=== PATIENT | female | born 1975 | race Caucasian/White ===

== ENCOUNTER 2023-06-30 19:21 | Emergency (ER) | payer OTHER ==
--- NOTE | 2023-06-30 21:06 | RAD REPORT ---
EXAM DESCRIPTION: RAD - Chest Single View - 06/30/2023 8:51 pm CLINICAL HISTORY: epigastric pain COMPARISON: No comparisons FINDINGS: Lines: None. Lungs: No evidence of edema or pneumonia. Pleural: No significant pleural effusions or pneumothorax. Cardiac: The heart size is within normal limits. Mediastinum: Within normal limits. Bones: No acute fractures. Other: None IMPRESSION: No acute cardiopulmonary disease.
[2023-06-30 21:50] LABS: Absolute Lymphocytes (CBC) 1.7 K/uL (0.7-4.9); Hematocrit 36.3 % (36.0-45.0); Lymphocytes % 13.8 % (15.3-44.8); MCV 98.6 fL (80-100); MPV 7.9 fL (7.6-11.3); Platelets 222 thou/uL (152-406); RBC Red Blood Cell Count 3.68 M/uL (3.86-4.86)
[2023-06-30 21:57] LABS: Protime INR 0.89
[2023-06-30 22:10] LABS: ALT/SGPT 42 U/L (13-56); AST/SGOT 24 U/L (15-37); Albumin 3.5 g/dL (3.4-5.0); Alkaline Phosphatase 59 U/L (45-117); BUN Blood Urea Nitrogen 7 mg/dL (7-18); Bicarbonate 24 mEq/L (21-32); Bilirubin Total 0.2 mg/dL (0.2-1.0); Glomerular Filtration Rate 112 ml/min (=/>90); Glucose Level 104 mg/dL (74-106); Lipase 50 U/L (13-75); NT PRO-BNP 49 pg/mL (<125); Potassium 3.6 mEq/L (3.5-5.1); Protein, Total 6.8 g/dL (6.4-8.2); Sodium Level 141 mEq/L (136-145); Troponin High Sensitivity 4.3 pg/mL (<58.9)
[2023-06-30 22:11] LABS: Bilirubin Direct < 0.1 mg/dL (0-0.2); Bilirubin Indirect, Calculated ND mg/dL (0.2-0.8)
--- NOTE | 2023-07-01 01:24 | EDPHYS ---
Physician Documentation [facility] Name: Mery Naik Age: 48 yrs Sex: Female : 1975 Arrival Date: 06/30/2023 Time: 19:21 Bed 17 Private MD: ED Physician Leland David HPI: 06/30 20:25 This 48 yrs old Female presents to ER via Ambulatory with complaints of Bloody Stools, cp Fatigue. 20:25 Onset: The symptoms/episode began/occurred this morning. Associated signs and symptoms: cp Pertinent positives: diarrhea, epigastric abdomen pain, Pertinent negatives: chest pain, constipation, fever, shortness of breath. Severity of symptoms: in the emergency department the symptoms are unchanged despite home interventions. 20:25 The patient presents to the emergency department with rectal bleeding, a moderate cp amount, dark red blood with bowel movement in toilet bowl, with multiple such episodes. Historical: - Allergies: 07/01 02:24 meloxicam; rv - Home Meds: 06/30 20:47 aspirin 81 mg Oral capsule [Active]; clopidogrel 75 mg oral tablet [Active]; vc1 - PSHx: 20:47 None; vc1 - Immunization history:: Client reports receiving the 2nd dose of the Covid vaccine. - Social history:: Smoking status: Patient denies any tobacco usage or history of. ROS: 20:30 Constitutional: Positive for fatigue, Negative for body aches, chills, fever, poor PO cp intake, 20:30 Eyes: Negative for injury, pain, redness, and discharge, cp 20:30 ENT: Negative for drainage from ear(s), ear pain, sore throat, difficulty swallowing, difficulty handling secretions, 20:30 Cardiovascular: Negative for chest pain, 20:30 Respiratory: Negative for cough, shortness of breath, wheezing, 20:30 Abdomen/GI: Positive for abdominal pain, diarrhea, rectal bleeding, Negative for vomiting, constipation, 20:30 Back: Negative for pain at rest, pain with movement, 20:30 : Negative for urinary symptoms, 20:30 Neuro: Negative for altered mental status, dizziness, headache, syncope, near syncope, 20:30 All other systems are negative, Exam: 20:33 Constitutional: The patient appears in no acute distress, alert, awake, non-toxic, well cp developed, well nourished, 20:33 Head/Face: Normocephalic, atraumatic. cp 20:33 Eyes: Periorbital structures: appear normal, Conjunctiva: normal, no exudate, no injection, Sclera: no appreciated abnormality, Lids and lashes: appear normal, bilaterally, 20:33 ENT: External ear(s): are unremarkable, Nose: is normal, Mouth: Lips: moist, Oral mucosa: pink and intact, moist, Posterior pharynx: is normal, airway is patent, no erythema, no exudate, 20:33 Chest/axilla: Inspection: normal, 20:33 Cardiovascular: Rate: tachycardic, Rhythm: regular, Edema: is not appreciated, JVD: is not appreciated, 20:33 Respiratory: the patient does not display signs of respiratory distress, Respirations: normal, no use of accessory muscles, no retractions, labored breathing, is not present, Breath sounds: are clear throughout, no decreased breath sounds, no stridor, no wheezing, 20:33 Abdomen/GI: Inspection: abdomen appears normal, Bowel sounds: active, all quadrants, Palpation: soft, in all quadrants, mild abdominal tenderness, in the epigastric area, rebound tenderness, is not appreciated, involuntary guarding, is not appreciated, 20:33 Back: pain, is absent, ROM is normal, 20:33 Neuro: Orientation: to person, place \T\ time. Mentation: is normal, Motor: moves all fours, strength is normal, Gait: is steady, Vital Signs: 20:44 BP 149 / 99; Pulse 105; Resp 20; Temp 98.3; Pulse Ox 99% ; Weight 48.99 kg; Height 5 vc1 ft. 8 in. ; 22:18 BP 129 / 77; Pulse 90; Resp 18; Pulse Ox 99% on R/A; rv 11/05 01:22 BP 136 / 79; Pulse 85; Resp 16; Pulse Ox 100% on R/A; rv 04:07 BP 121 / 76; Pulse 80; Resp 18; Temp 98; Pulse Ox 99% ; rv 04 20:44 Body Mass Index 16.42 (48.99 kg, 172.72 cm) vc1 [place] Coma Score: 06/30 22:18 Eye Response: spontaneous(4). Motor Response: obeys commands(6). Verbal Response: rv oriented(5). Total: 15. 07/01 01:22 Eye Response: spontaneous(4). Motor Response: obeys commands(6). Verbal Response: rv oriented(5). Total: 15. 04:07 Eye Response: spontaneous(4). Motor Response: obeys commands(6). Verbal Response: rv oriented(5). Total: 15. MDM: 06/30 20:15 Patient medically screened. 07/01 01:30 Data reviewed: vital signs, nurses notes, lab test result(s), radiologic studies, CT cp scan. 01:30 Differential diagnosis: colitis, diverticulitis, sepsis, anemia. I considered the cp following discharge prescriptions or medication management in the emergency department Medications were administered in the Emergency Department. See MAR. Counseling: I had a detailed discussion with the patient and/or guardian regarding the historical points, exam findings, and any diagnostic results supporting the discharge/admit diagnosis, lab results, radiology results, the need to transfer to another facility, [facility] does not immediately have the required specialist. 06/30 20:21 Order name: Basic Metabolic Panel; Complete Time: 22:28 cp 06/30 22:28 Interpretation: Normal except: CL 109. cp 06/30 20:21 Order name: CBC with Diff; Complete Time: 22:28 cp 06/30 22:28 Interpretation: Normal except: WBC 12.40; RBC 3.68; BARBI% 79.7; LYM% 13.8; NEUT A 9.9. cp 06/30 20:21 Order name: LFT's; Complete Time: 22:28 cp 06/30 20:21 Order name: Magnesium; Complete Time: 22:28 cp 06/30 20:21 Order name: NT PRO-BNP; Complete Time: 22:28 cp 06/30 20:21 Order name: PT-INR; Complete Time: 22:28 cp 06/30 20:21 Order name: Troponin HS; Complete Time: 22:28 cp 06/30 20:21 Order name: Ptt, Activated; Complete Time: 22:28 cp 06/30 20:21 Order name: Lipase; Complete Time: 22:28 cp 06/30 22:43 Order name: Ova And Parasites cp 06/30 22:43 Order name: Rotavirus Antigen cp 06/30 22:43 Order name: Stool Culture cp 06/30 22:43 Order name: CDIFF cp 07/01 01:22 Order name: Lactate w/ 2H reflex if indic.; Complete Time: 02:14 cp 07/01 01:22 Order name: Blood Culture Adult (2) cp 07/01 01:22 Order name: Type And Screen cp 06/30 20:21 Order name: XRAY Chest (1 view); Complete Time: 22:28 cp 06/30 21:20 Order name: CT Abd/Pelvis - PO and IV Contrast cp 06/30 20:21 Order name: EKG; Complete Time: 20:22 cp 06/30 20:21 Order name: Cardiac monitoring; Complete Time: 21:42 cp 06/30 20:21 Order name: EKG - Nurse/Tech; Complete Time: 21:42 cp 06/30 20:21 Order name: IV Saline Lock; Complete Time: 21:42 cp 06/30 20:21 Order name: Labs collected and sent; Complete Time: 21:42 cp 06/30 20:21 Order name: O2 Per Protocol; Complete Time: 21:42 cp 06/30 20:21 Order name: O2 Sat Monitoring; Complete Time: 21:42 cp Administered Medications: 02:26 Drug: metroNIDAZOLE IVPB 500 mg 100 ml IVPB once over 30 mins Volume: 100 ml; Route: rv IVPB; Infused Over: 30 mins; Site: right antecubital; 04:06 Follow up: Response: No adverse reaction; IV Status: Completed infusion; IV Intake: rv 100ml 02:44 Drug: NS 0.9% IV 1000 ml IV at 1 bolus Per protocol; 1000 mL bolus Route: IV; Rate: 1 rv bolus; Site: left antecubital; 04:06 Follow up: IV Status: Completed infusion; IV Intake: 1000ml rv 02:44 Drug: Pantoprazole IVP 40 mg IVP once Route: IVP; Site: left antecubital; rv 04:06 Follow up: Response: No adverse reaction rv 02:44 Drug: Pantoprazole IV 8 mg/hr IV at 25 ml/hr continuous; (Standard dilution is 80 mg in rv 250 mL NS) Route: IV; Rate: 25 ml/hr; Site: left antecubital; 04:06 Follow up: IV Status: Infusion continued upon transfer rv 03:06 Drug: Ciprofloxacin IVPB 400 mg 200 ml IVPB once over 60 mins Volume: 200 ml; Route: rv IVPB; Infused Over: 60 mins; Site: right antecubital; 04:06 Follow up: IV Status: Infusion continued upon transfer rv Disposition: 07/02 01:08 Co-signature as Attending Physician, Leland David MD I agree with the assessment sp4 and plan of care. I reviewed the patient's care provided by the Advanced Practice Provider and agree with the diagnosis and treatment plan. Disposition Summary: 07/01/23 01:23 Transfer Ordered Notes: Transfer Location: [facility] cp Reason: Higher level of care cp Condition: Stable cp Problem: new cp Symptoms: have improved cp Accepting Physician: DR Hodge(07/01/23 04:08) rv Diagnosis - GI Bleed/ Gastrointestinal hemorrhage, unspecified cp Forms: - Medication Reconciliation Form cp - SBAR form cp Signatures: Dispatcher [employer] EDMS Al Lin PA PA cp Vicente, Ronaldo RN Latoya Mascorro RN RN vc1 Potepalov, Sergey, MD MD sp4 Corrections: (The following items were deleted from the chart) 06/30 20:48 20:47 Home Meds: None; vc1 vc1 07/01 02:24 06/30 20:47 Allergies: No Known Allergies; vc1 rv 07/01 03:00 01:23 Doctor ava cp 03:10 03:00 DR Hodge cp rv 04:08 03:10 DR Hodge rv rv
--- NOTE | 2023-07-01 01:24 | ER ---
Nurse's Notes [facility] Name: Mery Naik Age: 48 yrs Sex: Female : 1975 Arrival Date: 06/30/2023 Time: 19:21 Bed 17 Private MD: Diagnosis: GI Bleed/ Gastrointestinal hemorrhage, unspecified Presentation: 06/30 20:44 Chief complaint: Patient states: I'm supposed to have a colonoscopy with Dr. Alarcon and vc1 he told me to come to the ER if I start bleeding. This am I had dark stools and some blood when I wipe but at 7 I had a lot of blood. Coronavirus screen: Vaccine status: Patient reports receiving the 2nd dose of the covid vaccine. [employer]. Ebola Screen: Patient negative for fever greater than or equal to 101.5 degrees Fahrenheit, and additional compatible Ebola Virus Disease symptoms Patient denies exposure to infectious person. Patient denies travel to an Ebola-affected area in the 21 days before illness onset. No symptoms or risks identified at this time. Initial Sepsis Screen: Does the patient meet any 2 criteria? No. Patient's initial sepsis screen is negative. Does the patient have a suspected source of infection? No. Patient's initial sepsis screen is negative. Risk Assessment: Do you want to hurt yourself or someone else? Patient reports no desire to harm self or others. Onset of symptoms was June 30, 2023. 20:44 Method Of Arrival: Ambulatory vc1 20:44 Acuity: GAVINO 3 vc1 Historical: - Allergies: 07/01 02:24 meloxicam; rv - Home Meds: 06/30 20:47 aspirin 81 mg Oral capsule [Active]; clopidogrel 75 mg oral tablet [Active]; vc1 - PSHx: 20:47 None; vc1 - Immunization history:: Client reports receiving the 2nd dose of the Covid vaccine. - Social history:: Smoking status: Patient denies any tobacco usage or history of. Screenin:42 [facility] ED Fall Risk Assessment (Adult) History of falling in the last 3 months, rv including since admission No falls in past 3 months (0 pts) Score/Fall Risk Level 0 - 2 = Low Risk Oriented to surroundings, Maintained a safe environment, Educated pt \T\ family on fall prevention, incl call for assistance when getting out of bed, Assessed \T\ reinforced patient's understanding of fall precautions, Provided non-skid footwear, Hourly rounding (assess needs \T\ fall precautionary measures) done, Used ambulatory aids as needed (educated on \T\ assisted with), Used gait belt as appropriate. Abuse screen: Denies threats or abuse. Denies injuries from another. Nutritional screening: No deficits noted. Tuberculosis screening: No symptoms or risk factors identified. Assessment: 22:18 General: Appears comfortable, Behavior is calm, cooperative. Pain: Denies pain. Neuro: rv Level of Consciousness is awake, alert, obeys commands, Oriented to person, place, time, situation. Cardiovascular: Capillary refill < 3 seconds. Respiratory: Airway is patent Respiratory effort is even, unlabored. GI: Abdomen is flat, non-distended. Vital Signs: 20:44 BP 149 / 99; Pulse 105; Resp 20; Temp 98.3; Pulse Ox 99% ; Weight 48.99 kg; Height 5 vc1 ft. 8 in. ; 22:18 BP 129 / 77; Pulse 90; Resp 18; Pulse Ox 99% on R/A; rv 07/01 01:22 BP 136 / 79; Pulse 85; Resp 16; Pulse Ox 100% on R/A; rv 04:07 BP 121 / 76; Pulse 80; Resp 18; Temp 98; Pulse Ox 99% ; rv 06/30 20:44 Body Mass Index 16.42 (48.99 kg, 172.72 cm) vc1 [place] Coma Score: 06/30 22:18 Eye Response: spontaneous(4). Motor Response: obeys commands(6). Verbal Response: rv oriented(5). Total: 15. 07/01 01:22 Eye Response: spontaneous(4). Motor Response: obeys commands(6). Verbal Response: rv oriented(5). Total: 15. 04:07 Eye Response: spontaneous(4). Motor Response: obeys commands(6). Verbal Response: rv oriented(5). Total: 15. ED Course: 06/30 19:23 Patient arrived in ED. mr 19:47 Al Lin PA is PHCP. cp 19:47 Leland David MD is Attending Physician. cp 20:47 Triage completed. vc1 20:48 Arm band placed on right wrist. vc1 20:53 XRAY Chest (1 view) In Process Unspecified. EDMS 21:42 Patient has correct armband on for positive identification. Client placed on continuous rv cardiac and pulse oximetry monitoring. NIBP monitoring applied. monitor car operator on. 21:42 No provider procedures requiring assistance completed. Inserted saline lock: 20 gauge rv in right forearm, using aseptic technique. Blood collected. 22:17 Aiden De La Torre, RN is Primary Nurse. rv 07/01 00:49 CT Abd/Pelvis - PO and IV Contrast In Process Unspecified. EDMS 01:35 Initiated transfer with [facility] at [facility]. rv1 03:10 Primary Nurse role handed off by Aiden De La Torre RN rv1 03:10 Patient admitted, IV remains in place. rv Administered Medications: 02:26 Drug: metroNIDAZOLE IVPB 500 mg 100 ml IVPB once over 30 mins Volume: 100 ml; Route: rv IVPB; Infused Over: 30 mins; Site: right antecubital; 04:06 Follow up: Response: No adverse reaction; IV Status: Completed infusion; IV Intake: rv 100ml 02:44 Drug: NS 0.9% IV 1000 ml IV at 1 bolus Per protocol; 1000 mL bolus Route: IV; Rate: 1 rv bolus; Site: left antecubital; 04:06 Follow up: IV Status: Completed infusion; IV Intake: 1000ml rv 02:44 Drug: Pantoprazole IVP 40 mg IVP once Route: IVP; Site: left antecubital; rv 04:06 Follow up: Response: No adverse reaction rv 02:44 Drug: Pantoprazole IV 8 mg/hr IV at 25 ml/hr continuous; (Standard dilution is 80 mg in rv 250 mL NS) Route: IV; Rate: 25 ml/hr; Site: left antecubital; 04:06 Follow up: IV Status: Infusion continued upon transfer rv 03:06 Drug: Ciprofloxacin IVPB 400 mg 200 ml IVPB once over 60 mins Volume: 200 ml; Route: rv IVPB; Infused Over: 60 mins; Site: right antecubital; 04:06 Follow up: IV Status: Infusion continued upon transfer rv Medication: 06/30 21:42 VIS not applicable for this client. rv Intake: 07/01 04:06 IV: 100ml; Total: 100ml. rv 04:06 IV: 1000ml; Total: 1100ml. rv Outcome: 01:23 ER care complete, transfer ordered by . cp 03:09 Admitted to Med/surg accompanied by nurse, via wheelchair, room 206, with chart, Report rv called to james lopez 03:09 Condition: good 03:09 Instructed on the need for admit, 03:10 Patient left the ED. rv 04:08 Patient left the ED. rv Signatures: Dispatcher [employer] EDDC Angela Andre, Reg Reg mr Al Lin, MARJORIE PA Aiden Hu, RN RN rv Latoya Johnson RN RN vc1 Kourtney Malik rv1 Corrections: (The following items were deleted from the chart) 06/30 20:48 20:47 Home Meds: None; vc1 vc1 07/01 02:24 06/30 20:47 Allergies: No Known Allergies; vc1 rv
[2023-07-01] MEDS ORDERED: CIPROFLOXACIN 400mg IV 400 MG/200 ML BAG IV ONE (02:34)
[2023-07-01] MEDS ORDERED: METRONIDAZOLE 500mg IVPB 500 MG/100 ML BAG IV ONE (02:34)
[2023-07-01] MEDS ORDERED: PANTOPRAZOLE 40 MG INJ ONE (02:43)
[2023-07-01] MEDS ORDERED: NA CHLORIDE 0.9% 100 ML ONE (02:43)
[2023-07-01] MEDS ORDERED: NA CHLORIDE 0.9% 250 ML ONE (02:45)
[2023-07-01 05:13] VITALS: BP 121/76; TEMP 98; O2SAT 99
--- NOTE | 2023-07-01 14:22 | RAD REPORT ---
EXAM DESCRIPTION: CT - Abdomen Pelvis W Contrast - 07/01/2023 6:47 am CLINICAL HISTORY: Rectal bleeding; Abd pain TECHNIQUE: Axial computed tomography images of the abdomen and pelvis with intravenous contrast. S agittal and coronal reformatted images were created and reviewed. This CT exam was performed using one or more of the following dose reduction techniques: automated exposure control, adjustment of t he mA and/or kV according to patient size, and/or use of iterative reconstruction technique. COMPARISON: No relevant prior studies available. FINDINGS: Lung bases: Unremarkable. No mass. No consolidation. ABDOMEN: Liver: The liver is enlarged and mildly diffusely low in density compatible with steatosis. Gallbladder and bile ducts: Unremarkable. No calcified stones. No ductal dilation. Pancreas: Unremarkable. Spleen: Unremarkable. No splenomegaly. Adrenals: Unremarkable. No mass. Kidneys and ureters: Small bilateral renal calculi. No hydronephrosis. Stomach and bowel: Multiloculated complex cystic structure located between the stomach and the panc reas measuring approximately 5.9 x 4 x 4.8 cm. There is a thin intervening fat plane between these structures in both organs. Moderate stool in the distal large bowel. No obstruction. No appreci able mucosal thickening. PELVIS: Appendix: Normal caliber appendix. No findings to suggest acute appendicitis. Bladder: The urinary bladder is partially decompressed. Mild circumferential urinary bladder wall thickening. Reproductive: Unremarkable as visualized. ABDOMEN and PELVIS: Intraperitoneal space: Unremarkable. No free air. No significant fluid collection. Bones/joints: Multilevel spondylosis most pronounced at L5-S1. Moderate degenerative changes at t he hip joints bilaterally. No acute fracture. No dislocation. Soft tissues: Partially visualized bilateral breast implants. Vasculature: Mild atherosclerotic disease. No abdominal aortic aneurysm. Lymph nodes: Unremarkable. No enlarged lymph nodes. IMPRESSION: 1. Moderate stool within the distal large bowel. No appreciable mucosal thickening. 2. Mild circumferential urinary bladder wall thickening which may be related to degree of distentio n. Please correlate clinically for cystitis. 3. There is an indeterminate complex multiloculated cystic lesion located between the stomach and t he pancreas measuring approximately 5.9 x 4 x 4.8 cm. There is a thin intervening fat plane between this structure and both organs suggesting that it is not of gastric or pancreatic origin. No surro unding inflammation to suggest an infected collection/abscess. Differential considerations include but are not limited to chylolymphatic cyst, cystic lymphangioma, mucinous cystic neoplasm of the mese ntery and multicystic peritoneal mesothelioma. If prior studies exist, direct comparison would be o f considerable value. Nonemergent surgical consult is recommended. 4. Other findings as above. Electronically signed by: Beto Mcclain MD 07/01/2023 1:53 AM YOUTH MINISTER Due to temporary technical issues with the PACS/Fluency reporting system, reports are being signed by the in house radiologists without review as a courtesy to insure prompt reporting. The interpreting radiologist is fully responsible for the content of the report.
[2023-07-02 02:44] LABS: C.diff Antigen/Toxin Ag neg : Tox neg (NEG : NEG)
--- NOTE | 2023-07-07 14:39 | EKG ---
Test Date: 2023-06-30 Test Time: 21:34:30 [employer] Machine Tender: RV MEASUREMENT RESULTS: Intervals: Rate: 83 DC: 134 QRSD: 102 QT: 372 QTc: 437 [place]: P: 51 DC: 134 QRS: 48 T: 61 INTERPRETIVE STATEMENTS: Normal sinus rhythm Normal ECG Compared to ECG 02/10/2020 09:47:21 Short DC interval no longer present Electronically Signed On 07-07-23 14:19:27 POWDERED METAL SUPERVISOR by Howard Martin
== END 2023-07-01 04:08 | disposition short-term general hospital (02) ==
LOC: ER 19:21
DX: K92.2 Gastrointestinal hemorrhage, unspecified (principal); R10.13 Epigastric pain; Z88.8 Allergy status to other drugs, medicaments and biological substances; Z79.82 Long term (current) use of aspirin
CPT/HCPCS: 93005; 87040 ×2; 87045; 85025; 80048; 36415; 86900; 83735; 86850; 87177; 85610; 86901; 80076; 87046; 83605; 85730; 87209; 87324; 84484; 83690; 83880; 87425; 74177; 71045; 99285; Q9967; C9113; J0744; J7050